=== PATIENT | male | born 1960 | race Caucasian/White ===

== ENCOUNTER 2017-08-27 11:04 | Emergency (ER) | payer MEDICAID ==
[~2017-08-27] VITALS: Ht 180.3 cm; Wt 74.8 kg
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
[2017-08-27 12:09] VITALS: BP 143/91
--- NOTE | 2017-08-27 12:13 | RADIOLOGY REPORT PS360 ---
ELBOW-RT-3 VIEWS COMPARISON: None HISTORY: Right elbow pain after wrestling 2-3 weeks ago TECHNIQUE: AP lateral and oblique views FINDINGS: The supracondylar humerus appears normal. The radial head is intact. The olecranon fossa appears normal. There is very minimal spurring of the tip of the olecranon at the insertion of the triceps tendon. There is no abnormal fat pad sign. IMPRESSION: Right elbow negative for acute pathology
--- OUTSIDE RECORDS SUMMARY | 2017-09-05 06:28 | External Medical Summary Rpt | CCD ---
Author Author , ALEXI Organization ALEXI Address Unknown Phone [email or web address] Care Team Providers Care Folder Hand Name Role Phone TONIE DRISCOLL MD, PSC, Unavailable Unavailable TONIE DRISCOLL MD, PSC [facility] Unavailable Unavailable [facility], [facility] ARIAS, ARIAS Unavailable Unavailable [facility] Unavailable Unavailable HOSPITAL, [facility] KLAUS HOGAN Unavailable Unavailable KLAUS ACUÑA Unavailable Unavailable [facility]UL[facility] FLORES JAM, SANDRA FLORES Unavailable Unavailable [facility] Unavailable Unavailable PHYSICIAN PRA, [facility] PHYSICIAN PRA [facility], Unavailable Unavailable [facility] ETIENNE JAIMIE MONTERROSO Unavailable Unavailable CHANDAN PAT, CHANDAN PAT Unavailable Unavailable MONTY CONNIE, Unavailable Unavailable MONTY CONNIE DEPA RAY, DEPA RAY Unavailable Unavailable NAM [facility], Unavailable Unavailable [facility] Unavailable Unavailable [facility], [facility] Unavailable Unavailable TRANSPORTATION SER, [facility] DANNIELLE SEBASTIAN, DANNIELLE Unavailable Unavailable SE[facility]ST[facility], Unavailable Unavailable [facility] Unavailable Unavailable INC, [facility] PEARSON TRA, PEARSON TRA Unavailable Unavailable [facility] Unavailable Unavailable GROUP PS, [facility] Unavailable Unavailable [facility], [facility] RICAHRD CRI, RICHARD CRI Unavailable Unavailable [facility] Unavailable Unavailable AT [facility] CHANTELLE ANT, CHANTELLE Unavailable Unavailable ANT NWAUCHE [facility], NWAUCHE Unavailable Unavailable [facility] Un[facility] LOC ETIENNE MD Unavailable Unavailable CONSULTING SRV, LOC ETIENNE MD CONSULTING SRV [facility], Unavailable Unavailable PLLC, [facility], [facility] Unavailable Unavailable [facility], [facility] CHINO GRE, Unavailable Unavailable [facility] TY BREEZY, TY BREEZY Unavailable Unavailable BEARDEN SHANDRA, BEARDEN SHANDRA Unavailable Unavailable SOTINGEANU LILIBETH, Unavailable Unavailable SOTINGEANU LILIBETH COUNTS INCLUDE 234 BEDS AT THE [facility] Unavailable Unavailable EMERGENCY PHYS, COUNTS INCLUDE 234 BEDS AT THE [facility] EMERGENCY PHYS BERENICE MAT, BERENICE MAT Unavailable Unavailable Purpose Continuity of Care Document - 12-09-2013 through 2016 Problems Code Diagnosis DOS Provider Status M545 LOW BACK 01-23-2017 [facility] G8929 OTHER 12-26-2016 [facility] M5431 SCIATICA 07-11-2016 [facility] Z720 TOBACCO USE 07-11-2016 [facility] X76408 CELLULITIS 06-01-2016 [facility] OF RIGHT PHYSICIANS, LOWER LIMB PLLC W30027 PAIN IN 06-01-2016 [facility] [id number] STRAIN 06-01-2016 [facility] MUSCLE [facility], FASCIA & PLLC TENDON LOW BACK INITIAL [id number] UNSPECIFIED 06-01-2016 [facility] LOWER BACK IMAGING ASS INITIAL ENCOUNTER [id number] PUNCTURE 06-01-2016 [facility] WOUND W/O [facility] FOREIGN INC BODY RT KNEE INIT ENC G5601 CARPAL 01-23-2016 TONIE BUX, TUNNEL , PSC SYNDROME RIGHT UPPER LIMB M129 ARTHROPATHY 01-23-2016 [facility] UNSPECIFIED INC R69 ILLNESS 01-23-2016 FED[facility]ATED UNSPECIFIED TRANSPORTAT ION SER G5602 CARPAL 11-24-2015 [facility] [place] [facility] SYNDROME S PLC LEFT UPPER LIMB C85871 PAIN IN 09-29-2015 [facility] B14368 PAIN IN 09-29-2015 [facility] 62342 08-05-2015 [facility] TRANSPORTAT ION SER 2113 BENIGN 06-22-2015 [facility], NEOPLASM OF LLC COLON V7651 SPECIAL 06-22-2015 [facility] PRA NEOPLASMS COLON 28366 DYSPHAGIA 06-06-2015 [facility] 0088 INTESTINAL 02-17-2015 [facility] N EMERGENCY DUE TO PHYS OTHER ORGANISM NEC 18921 NAUSEA WITH 02-17-2015 [facility] [place] [facility] 86698 ABDOMINAL 02-17-2015 [facility] PAIN, N EMERGENCY UNSPECIFIED PHYS SITE 3540 CARPAL 06-16-2014 [facility] [place] [address] ESOPHAGEAL 05-12-2014 [facility] 7242 LUMBAGO 05-12-2014 [facility] 8461 SPRAIN AND 04-09-2014 [facility] [place] [address] CHEST PAIN 04-01-2014 [facility] UNSPECIFIED CARDIOLOGY AT [facility] 96819 OTH 04-01-2014 [facility] NONSPECIFIC C[facility] ABNORM CV AT [facility] SYSTEM FUNCTION STUDY V7281 PRE-OPERATI 04-01-2014 [facility] VE CARDIOLOGY CARDIOVASCU AT [facility] LAR EXAMINATION 7856 ENLARGEMENT 03-22-2014 [facility] [place] [address] OTHER 03-22-2014 [facility] [place] NONSPECIFIC RADIOLOGY ABNORMAL FINDING OF LUNG FIELD V7263 PRE-PROCEDU 03-22-2014 [facility] EXAMINATION 7197 DIFFICULTY 02-16-2014 [facility] IN [facility] 59973 SHORTNESS 02-16-2014 [facility] 38319 PRECORDIAL 02-16-2014 LOC ETIENNE [place] 08682 PAIN IN 02-09-2014 [facility] PELVIC REGION AND THIGH 7295 PAIN IN 02-09-2014 [facility] LIMB 3542 LESION OF 01-19-2014 [facility] JUANITA 2724 OTHER AND 01-15-2014 [facility] HARDWICK UNSPECIFIED HYPERLIPIDE ENRRIQUE 4011 ESSENTIAL 01-08-2014 [facility], BENIGN INC 43367 HYPERTROPHY 01-08-2014 [facility] PROSTATE [facility] W/O UR OBST INC & OTH LUTS 11105 PAIN IN 12-22-2013 [facility] JOINT, HAND ORTHOP[facility]EDIC S PLC Medications Na ND Rx Da Fi Fi Am Da Di Ph RX Ph St me C No te ll ll ou ys ag ar # ys at rm s nt no ma ic us Or Da si cy ia de te s n re d LA 68 09 10 60 30 00 HO Ac NS 00 -1 -0 .0 00 ME ti OP 10 1- 6- 00 06 TO ve RA 11 20 20 07 WN ZO 20 17 17 27 LE [address] MA CY 30 OF MG CY CA NT PS HI UL AN E A CY 10 09 10 60 30 00 HO Ac CL 70 -1 -0 .0 00 ME ti OB 20 1- 6- 00 06 TO ve EN 00 20 20 09 WN ZA 71 17 17 40 TX 0 97 PH IN AR E MA 10 CY MG OF TA CY BL NT ET HI AN A LA 68 08 08 60 30 00 HO Ac NS 00 -0 -2 .0 00 ME ti OP 10 1- 5- 00 06 TO ve RA 11 20 20 07 WN ZO 20 17 17 27 LE [address] LENZ CY 30 OF MG CY CA NT PS HI UL AN E A CY 69 08 08 60 30 00 HO Ac CL 09 -0 -2 .0 00 ME ti OB 70 1- 5- 00 06 TO ve EN 84 20 20 09 WN ZA 61 17 17 16 TX 5 89 PH IN AR E MA 10 CY MG OF TA CY BL NT ET HI AN A CY 69 06 06 60 30 00 HO Ac CL 09 -0 -2 .0 00 ME ti OB 70 2- 3- 00 06 TO ve EN 84 20 20 08 WN ZA 61 17 17 33 TX 5 31 PH IN AR E MA 10 CY MG OF TA CY BL NT ET HI AN A NI 00 05 05 28 28 00 HO Ac CO 53 -0 -2 .0 00 ME ti TI 61 2- 6- 00 06 TO ve NE 10 20 20 08 WN 7 68 17 17 05 8 23 PH MG AR /2 MA 4H CY R PA OF TC H CY NT HI AN A NA 68 05 05 60 30 00 HO Ac TX 46 -0 -2 .0 00 ME ti OX 20 1- 6- 00 06 TO ve EN 19 20 20 08 WN 00 17 17 05 50 5 18 PH 0 AR MG MA CY TA BL OF ET CY NT HI AN A CY 69 05 05 60 30 00 HO Ac CL 09 -0 -2 .0 00 ME ti OB 70 1- 6- 00 06 TO ve EN 84 20 20 08 WN ZA 61 17 17 33 TX 5 31 PH IN AR E MA 10 CY MG OF TA CY BL NT ET HI AN A LA 68 05 05 60 30 00 HO Ac NS 00 -0 -2 .0 00 ME ti OP 10 1- 6- 00 06 TO ve RA 11 20 20 07 WN ZO 20 17 17 27 LE [address] LENZ CY 30 OF MG CY CA NT PS HI UL AN E A NI 00 03 05 14 14 00 HO Ac CO 53 -2 -0 .0 00 ME ti TI 65 7- 5- 00 06 TO ve NE 89 20 20 08 WN 58 17 17 05 14 8 21 PH AR MG MA /2 CY 4H R OF PA TC CY H NT HI AN A LA 68 03 04 60 30 00 HO Ac NS 00 -1 -0 .0 00 ME ti OP 10 6- 7- 00 06 TO ve RA 11 20 20 07 WN ZO 20 17 17 27 LE [address] YOANNA CY 30 OF MG CY CA NT PS HI UL AN E A NA 68 03 04 60 30 00 HO Ac TX 46 -1 -0 .0 00 ME ti OX 20 6- 7- 00 06 TO ve EN 19 20 20 08 WN 00 17 17 05 50 5 18 PH 0 AR MG MA CY TA BL OF ET CY NT HI AN A CY 00 03 04 60 30 00 HO Ac CL 60 -1 -0 .0 00 ME ti OB 33 6- 7- 00 06 TO ve EN 07 20 20 08 WN ZA 93 17 17 33 TX 2 31 PH IN AR E MA 10 CY MG OF TA CY BL NT ET HI AN A NA 68 01 02 60 30 00 HO Ac TX 46 -3 -2 .0 00 ME ti OX 20 1- 4- 00 06 TO ve EN 19 20 20 08 WN 00 17 17 05 50 5 18 PH 0 AR MG MA CY TA BL OF ET CY NT HI AN A NI 00 01 02 14 14 00 HO Ac CO 53 -3 -2 .0 00 ME ti TI 65 1- 4- 00 06 TO ve NE 89 20 20 08 WN 68 17 17 05 21 8 20 PH AR MG MA /2 CY 4H R OF PA TC CY H NT HI AN A CY 00 01 02 60 30 00 HO Ac CL 60 -1 -1 .0 00 ME ti OB 33 7- 7- 00 06 TO ve EN 07 20 20 07 WN ZA 93 17 17 63 TX 2 94 PH IN AR E MA 10 CY MG OF TA CY BL NT ET HI AN A LA 68 01 02 60 30 00 HO Ac NS 00 -1 -1 .0 00 ME ti OP 10 7- 7- 06 TO ve RA 11 20 20 07 WN ZO 20 17 17 27 LE [address] LENZ CY 30 OF MG CY CA NT PS HI UL AN E A Procedures Procedure DOS Code Location Performer Comment THERAPEUT 20609 [facility] IC PX 1/> 7 [facility] ARE[facility] INC INC EACH 15 MIN EXERCISES APPL 79274 [facility] MODALITY 7 [facility] 1/> AREAS INC INC TRACTION MECHANICA L APPL 30635 [facility] MODALITY [facility] 1/> AREAS INC INC ELEC STIMJ UNATTENDE D APPLICATI 04243 [facility] ON 7 [facility]OS[facility] MODALITY INC INC 1/> AREAS HOT/COLD PACKS APPLICATI 81444 [facility] ON 7 [facility]OS[facility] MODALITY INC INC 1/> AREAS HOT/COLD PACKS APPL 96119 [facility] MODALITY 7 [facility]OS[facility] 1/> AREAS INC INC ELEC STIMJ UNATTENDE D APPL 21186 [facility] MODALITY 7 [facility] 1/> AREAS INC INC TRACTION MECHANICA L THERAPEUT 49390 [facility] IC PX 1/> 7 [facility] AREAS INC INC EACH 15 MIN EXERCISES THERAPEUT 10313 [facility] IC PX 1/> 7 [facility]OS[facility] AREAS INC INC EACH 15 MIN EXERCISES APPL 44609 [facility] MODALITY 7 [facility]OS[facility] 1/> AREAS INC INC TRACTION MECHANICA L APPL 99995 [facility] MODALITY 7 [facility] 1/> AREAS INC INC ELEC STIMJ UNATTENDE D APPLICATI 99488 [facility] ON 7 [facility]OS[facility] MODALITY INC INC 1/> AREAS HOT/COLD PACKS APPLICATI 77976 [facility] ON 7 [facility]OS[facility] MODALITY INC INC 1/> AREAS HOT/COLD PACKS APPL 96128 [facility] MODALITY 7 [facility]OS[facility] 1/> AREAS INC INC ELEC STIMJ UNATTENDE D APPL 54818 [facility] MODALITY 7 [facility] 1/> AREAS INC INC TRACTION MECHANICA L THERAPEUT 38133 [facility] IC PX 1/> 7 [facility]OS[facility] AREAS INC INC EACH 15 MIN EXERCISES PHYSICAL 77510 [facility] THERAPY 7 [facility]OS[facility] EVALUATIO INC INC N MOD COMPLEX 30 MINS RADEX 02944 [facility] SPINE 7 MEDICAL LUMBOSACR IMAGING AL 2/3 ASS VIEWS RADEX 73019 [facility] SPINE 6 MEDICAL CONNIE LUMBOSACR IMAGING AL ASS MINIMUM 4 VIEWS RADIOLOGI 34520 [facility] M[facility] C 6 MEDICAL CONNIE EXAMINATI IMAGING ON KNEE 3 ASS VIEWS NONEMERG A0120 [facility]ATED FEDERATED TRNSPRT: 6 [facility]SPORT TRANSPORT MTN ATION SER ATION SER AREA/OTH SYS NONEMERG A0120 [facility]ERATED FEDERATED TRNSPRT: 6 [facility] TRANSPORT TRANSPORT MTN ATION SER ATION SER AREA/OTH SYS NONEMERG A0120 FEDERATED FEDERATED TRNSPRT: 5 [facility] TRANSPORT TRANSPORT MTN ATION SER ATION SER AREA/OTH SYS NONEMERG A0120 FEDERATED FEDERATED TRNSPRT: 5 [facility] TRANSPORT TRANSPORT MTN ATION SER ATION SER AREA/OTH SYS NERVE 34945 [facility] CONDUCTIO 5 N N STUDIES NEUROLOGY 9-10 STUDIES NONEMERG A0120 FEDERATED FEDERATED TRNSPRT: 5 [facility] TRANSPORT TRANSPORT MTN ATION SER ATION SER AREA/OTH SYS NEEDLE 20671 [facility] EMG EA 5 N EXTREMTY NEUROLOGY W/PARASPI NL AREA COMPLETE NONEMERG A0120 FEDERATED FEDERATED TRNSPRT: 5 [facility] TRANSPORT TRANSPORT MTN ATION SER ATION SER AREA/OTH SYS NONEMERG A0120 FEDERATED FEDERATED TRNSPRT: 5 [facility] TRANSPORT TRANSPORT MTN ATION SER ATION SER AREA/OTH SYS NONEMERG A0120 FEDERATED FEDERATED TRNSPRT: 5 [facility] TRANSPORT TRANSPORT MTN ATION SER ATION SER AREA/OTH SYS ANES 41008 [facility] BREEZY LOWER 5 ANESTHESI INTESTINE A GROUP [place] [address] [facility], CHANDAN PAT SURG 5 LLC PATHOLOGY GROSS&SEBASTIAN ROSCOPIC EXAM NONEMERG A0120 FEDERATED FEDERATED TRNSPRT: 5 [facility] TRANSPORT TRANSPORT MTN ATION SER ATION SER AREA/OTH SYS [place]SC FLX 61205 [place] [facility] W/RMVL 5 REGIONAL GRE OF TUMOR PHYSICIAN POLYP PRA LESION SNARE TQ SWALLOWIN 67477 RAJANI GERARD G FUNCJ 5 [facility] W/[facility] IOGRAPY/V IDRADIOG NONEMERG A0120 FEDERATED FEDERATED TRNSPRT: 5 [facility]I-[facility] TRANSPORT TRANSPORT [facility] AREA/OTH SYS MOTION 51139 [facility] FLUOR 5 [facility] SWLNG FUNCJ C/V REC NONEMERG A0120 FEDERATED FEDERATED TRNSPRT: 5 [facility] TRANSPORT TRANSPORT MT[facility] [address] [facility] [place] FLORES JAM ABDOMEN & 5 RADIOLOGY PELVIS W/O CONTRAST MATERIAL NONEMERGE A0100 [facility]ER[facility] FEDERATED NCY 5 TRANSPORT TRANSPORT TRAN[facility] TAXI NONEMERG A0120 FEDERATED FEDERATED TRNSPRT: 4 TRANS [facility] TRANSPORT SERVBLUEG MTN [facility] DARWIN AREA/OTH SYS NONEMERG A0120 FEDERATED FEDERATED TRNSPRT: 4 TRANS [facility]I-BUS TRANSPORT SERVBLUEG MTN [facility] DARWIN AREA/OTH SYS NONEMERG A0120 FEDERATED FEDERATED TRNSPRT: 4 TRANS MINI-BUS TRANSPORT SERVBLUEG MTN [facility] DARWIN AREA/OTH SYS NEUROPLAS 19810 [facility] TY 4 [place] &/TRANSPO ORTHOPAED S MEDIAN ICS PLC NRV CARPAL TUNNE ANES 94939 [facility] NERVE 4 ANESTHESI MUSCLE A GROUP TDN PS FASCIA&BU RSA FOREARM WRIST NONEMERG A0120 FEDERATED FEDERATED TRNSPRT: 4 TRANS [facility]I-BUS TRANSPORT SERVBLUEG MTN [facility] SER DARWIN AREA/OTH SYS NONEMERG A0120 FEDERATED FEDERATED TRNSPRT: 4 TRANS MINI-BUS TRANSPORT SERVBLUEG MTN [facility] DARWIN AREA/OTH SYS INJECTION 22455 [facility] 1 TENDON 4 [place] ORTHOPAED SHEATH/LI ICS PLC GAMENT APONEUROS IS NONEMERG A0120 FEDERATED FEDERATED TRNSPRT: 4 TRANS MINI-BUS TRANSPORT SERVBLUEG [facility] AREA/OTH SYS INJ J0702 [facility] BETAMETHA 4 [place] SONE ORTHOPAED ACETATE & ICS PLC PHOSPHATE 3 MG THERAPEUT 26995 [facility]IMARY [facility] IC 4 HEALTH MULU PROPHYLAC ASSOCIATE TIC/DX S PS INJECTION SUBQ/IM INJECTION J2001 [facility] 4 HEALTH MULU LIDOCAINE ASSOCIATE HCL S PS INTRAVENO US INFUS 10 MG INJ J2930 [facility] METHYLPRD 4 HEALTH MULU NISOLONE ASSOCIATE SODIUM S PS SUCCNAT TO 125 MG NONEMERG A0120 FEDERATED FEDERATED TRNSPRT: 4 TRANS MINI-BUS TRANSPORT SERVBLUEG [facility] AREA/OTH SYS NONEMERG A0120 FEDERATED FEDERATED TRNSPRT: 4 TRANS MINI-BUS TRANSPORT SERVBLUEG [facility] AREA/OTH SYS CATH PLMT 90421 [facility] L HRT & 4 ANT ARTS CARDIOLOG W/NJX & Y AT [facility] ANGIO IMG S&I NONEMERG A0120 FEDERATED FEDERATED TRNSPRT: 4 TRANS [facility]I-BUS TRANSPORT SERVBLUEG [facility] AREA/OT SYS ECG 59303 LOC ETIENNE ETIENNE LOC ROUTINE 4 MD ECG CONSULTIN W/LEAST G SRV 12 LDS I&R ONLY RADIOLOGI 90028 [facility] [place] BERENICE MAT C EXAM 4 RADIOLOGY CHEST 2 VIEWS FRONTAL&L ATERAL NONEMERG A0120 FEDERATED FEDERATED TRNSPRT: 4 [facility]I-BUS TRANSPORT TRANSPORT [facility] AREA/OTH SYS BLOOD 98964 [facility] COUNT 4 [facility] AUTOMATED BASIC 59456 [facility] METABOLIC 4 [facility] CALCIUM TOTAL COLLECTIO 64931 [facility] N VENOUS 4 [facility] VENIPUNCT URE ECG 66774 [facility] ROUTINE 4 [facility] W/LEAST 12 LDS TRCG ONLY W/O I&R NONEMERG A0120 FEDERATED FEDERATED TRNSPRT: 4 [facility] TRANSPORT TRANSPORT MTN ATION SER ATION SER AREA/OTH SYS NONEMERG A0120 FEDERATED FEDERATED TRNSPRT: 4 [facility] TRANSPORT TRANSPORT MTN ATION SER ATION SER AREA/OTH SYS MYOCARDIA 88205 LOC ETIENNE ETIENNE LOC L SPECT 4 MD MULTIPLE CONSULTIN STUDIES G SRV INJECTION J2785 [address] ON 0.1 MG TECHNETIU A9500 [facility] TC-99M [address] [place] [address] DX PER STUDY DOSE CV STRS 31979 [facility] TST 4 [facility] XERS&/OR HOSPITAL HOSPITAL RX CONT ECG TRCG ONLY CV STRS 19381 LOC ETIENNE ETIENNE LOC TST 4 MD XERS&/OR CONSULTIN RX CONT G SRV ECG I&R ONLY NONINVASI 78884 [facility] VE 4 [facility] EAR/PULSE [facility] OXIMETRY OVERNIGHT MONITOR INJ J0702 [facility] BETAMETHA 4 [place] SONE ORTHOPAED ACETATE & ICS PLC PHOSPHATE 3 MG ARTHROCEN 39497 [facility] TESIS 4 [place] ASPIR&/IN ORTHOPAED J SMALL ICS PLC JT/BURSA W/O US RADEX HIP 45880 [facility] [place] BERENICE MAT 4 RADIOLOGY UNILATERA L COMPLETE MINIMUM 2 VIEWS NONEMERG A0120 FEDERATED FEDERATED TRNSPRT: 4 [facility] TRANSPORT TRANSPORT MTN ATION SER ATION SER AREA/OTH SYS ECHO 02640 LOC ETIENNE ETIENNE LOC TTHRC R-T 4 2D CONSULTIN W/WOM-MOD G SRV E COMPL SPEC&COLR D NONEMERG A0120 FEDERATED FEDERATED TRNSPRT: 4 [facility] TRANSPORT TRANSPORT MTN ATION SER ATION SER AREA/OTH SYS NERVE 18293 [facility] CONDUCTIO 4 NEUROLOGY OMAR N STUDIES CENTER 9-10 JUANITA STUDIES NEEDLE 04647 [facility] N[facility] EMG EA 4 NEUROLOGY OMAR EXTREMTY CENTER W/PARASPI JUANITA NL AREA COMPLETE ELIG CLIN G8427 [facility] ATTSTS 4 NEUROLOGY OMAR DOC M REC CENTER OBTD JUANITA UPD/REV PT MEDS NONEMERG A0120 FEDERATED FEDERATED TRNSPRT: 4 [facility] TRANSPORT TRANSPORT MTN ATION SER ATION SER AREA/OTH SYS NONEMERG A0120 FEDERATED FEDERATED TRNSPRT: 4 [facility] TRANSPORT TRANSPORT MTN ATION SER ATION SER AREA/OTH SYS LIPID 06517 [facility] PANEL 4 [facility] INC INC HEPATIC 36987 [facility] FUNCTION 4 [facility] PANEL INC INC BASIC 30660 [facility] OSL METABOLIC 4 [facility] PANEL INC INC CALCIUM TOTAL PROSTATE G0103 [facility] CANCER 4 [facility] SCREENING INC INC ; PSA TEST NONEMERG A0120 FEDERATED FEDERATED TRNSPRT: 4 [facility] TRANSPORT TRANSPORT MTN ATION SER ATION SER AREA/OTH SYS NONEMERG A0120 FEDERATED FEDERATED TRNSPRT: 4 [facility] TRANSPORT TRANSPORT MTN ATION SER ATION SER AREA/OTH SYS NONEMERG A0120 FEDERATED FEDERATED TRNSPRT: 4 [facility] TRANSPORT TRANSPORT MTN ATION SER ATION SER AREA/OTH SYS RADEX 07567 [facility] HAND 4 [place] MINIMUM 3 ORTHOPAED VIEWS ICS PLC NONEMERG A0120 FEDERATED FEDERATED TRNSPRT: 4 [facility] TRANSPORT TRANSPORT MTN ATION SER ATION SER AREA/OTH SYS NONEMERG A0120 FEDERATED FEDERATED TRNSPRT: 4 [facility] TRANSPORT TRANSPORT MTN ATION SER ATION SER AREA/OTH SYS Encounters Encounter Start End Date Code Location Performer Type Date [facility] - 7 7 [facility] - 7 7 [facility] - 6 6 [facility] INC EMERGENCY 42811 JONO LAMAS 6 6 PHYSICIAN U [facility] T VISIT MODERATE SEVERITY EMERGENCY 23938 [facility] 6 6 [facility] T VISIT LOW/MODER SEVERITY HOSPITAL [facility] - 6 6 [facility] OUTPATIEN [facility] T EMERGENCY 31007 JONO SPICER 6 6 PHYSICIAN [facility] T VISIT MODERATE SEVERITY EMERGENCY 35547 [facility] 6 6 [facility] T VISIT LOW/MODER SEVERITY OFFICE 93810 [facility] T VISIT INC 10 MINUTES OFFICE 57157 TONIE RAMOS [facility] OUTPATIEN 6 6 MD YAMILA, T NEW 45 PSC MINUTES HOSPITAL [facility] - 6 6 [facility] OUTPATIEN INC T OFFICE 13356 [facility] OUTPATIEN 5 5 [place] T VISIT ORTHOPAED 15 ICS PLC MINUTES OFFICE 66589 [facility] OUTPATIEN 5 5 [place] [facility] ORTHOPAED 15 I[facility] PLC MINUTES OFFICE 64859 [facility] OUTPATIEN 5 5 [place] VIS[place]THOPAED 15 [facility] MINUTES [facility] [place] [facility] 5 5 [facility] 99954 [facility] 5 5 [facility] EMERGENCY T VISIT PHYS HIGH/URGE NT SEVERITY OFFICE 02431 [facility] OUTPATIEN 4 4 [facility]ALTH [facility] T VISIT ASSOCIATE 15 S PS MINUTES OFFICE 20946 [facility] OUTPATIEN 4 4 [place] T VISIT ORTHOPAED 15 ICS PLC MINUTES OFFICE 47400 [facility] OUTPATIEN 4 4 [facility]ALTH [facility] T VISIT ASSOCIATE 25 S PS MINUTES [facility] [place] - 4 4 [facility] T OFFICE 41347 [facility] OUTPATIEN 4 4 HEALTH [facility]UL[facility] T VISIT ASSOCIATE 15 S PS MINUTES OFFICE 47160 [facility] OUTPATIEN 4 4 [place] T VISIT ORTHOPAED 15 ICS PLC MINUTES OFFICE 34568 [facility] OUTPATIEN 4 4 [place] VISIT ORTHOPAED 15 [facility] MINUTES [facility] [place] [facility] 4 4 [facility] T OFFICE 62305 [facility] KLAUS OUTPATIEN 4 4 MULU MULU T VISIT 25 MINUTES OFFICE 24537 [facility] KLAUS OUTPATIEN 4 4 MULU MULU T VISIT 15 MINUTES HOSPITAL [facility] - 4 4 [facility] T OFFICE 71893 [facility] OUTPATIEN 4 4 [place] T NEW 30 ORTHOPAED MINUTES ICS PLC OFFICE 25390 PR[facility] OUTPATIEN 4 4 HEALTH MULU T NEW 30 ASSOCIATE MINUTES S PS
--- OUTSIDE RECORDS SUMMARY | 2017-09-05 06:28 | External Medical Summary Rpt | CCD ---
Author Author , ALEXI Organization ALEXI Address Unknown Phone [email or web address] Care Team Providers Care Portable Irrigation Operator Name Role Phone TONIE DRISCOLL MD, PSC, Unavailable Unavailable TONIE DRISCOLL MD, PSC [facility] Unavailable Unavailable [facility]ENTER J[facility], [facility] J[facility]ITA ARIAS, ARIAS Unavailable Unavailable [facility] Unavailable Unavailable HOSPITAL, [facility] KLAUS HOGAN Unavailable Unavailable KLAUS ACUÑA Unavailable Unavailable MUL[facility] FLORES JAM, SANDRA FLORES Unavailable Unavailable [facility] Unavailable [facility] Unavailable Unavailable PHYSICIAN PRA, [facility] PH[facility]ICIAN PRA [facility], Unavailable Unavailable [facility] ETIENNE JAIMIE MONTERROSO Unavailable Unavailable CHANDAN PAT, CHANDAN PAT Unavailable Unavailable MONTY CONNIE, Unavailable Unavailable MONTY CONNIE DEPA RAY, DEPA RAY Unavailable Unavailable NAM OMAR, Unavailable Unavailable N[facility] Unavailable Unavailable [facility], [facility] Unavailable Unavailable TRANSPORTATION SER, [facility] DANNIELLE SEBASTIAN, DANNIELLE Unavailable Unavailable [facility], Unavailable Unavailable [facility] Unavailable Unavailable INC, [facility] PEARSON TRA, PEARSON TRA Unavailable Unavailable [facility] Unavailable Unavailable GROUP PS, [facility] Unavailable Unavailable [facility], [facility] RICHARD CRI, RICHARD CRI Unavailable Unavailable [facility] Unavailable Unavailable AT [facility], [facility] CHANTELLE ANT, CHANTELLE Unavailable Unavailable ANT [facility], NWAUCHE Unavailable Unavailable [facility] Unavailable [facility] LOC ETIENNE MD Unavailable Unavailable CONSULTING SRV, LOC ETIENNE MD CONSULTING SRV [facility], Unavailable Unavailable PLLC, [facility], [facility] Unavailable Unavailable [facility], [facility] CHINO GRE, Unavailable Unavailable [facility] TY BREEZY, TY BREEZY Unavailable Unavailable BEARDEN SHANDRA, BEARDEN SHANDRA Unavailable Unavailable SOTINGEANU LILIBETH, Unavailable Unavailable SOTINGEANU LILIBETH [facility] Unavailable Unavailable EMERGENCY PHYS, [facility] BERENICE MAT, BERENICE MAT Unavailable Unavailable Purpose Continuity of Care Document - 12-09-2013 through 2016 Problems Code Diagnosis DOS Provider Status M545 LOW BACK 01-23-2017 [facility] G8929 OTHER 12-26-2016 [facility] M5431 SCIATICA 07-11-2016 [facility] Z720 TOBACCO USE 07-11-2016 [facility] T04696 CELLULITIS 06-01-2016 [facility] RIGHT PHYSICIANS, LOWER LIMB PLLC A55441 PAIN IN 06-01-2016 [facility] [id number] STRAIN 06-01-2016 [facility], FASCIA & PLLC TENDON LOW BACK INITIAL [id number] UNSPECIFIED 06-01-2016 [facility]OWER BACK [facility] ASS INITIAL ENCOUNTER [id number] PUNCTURE 06-01-2016 [facility] WOUND W/O [facility] FOREIGN INC BODY RT KNEE INIT ENC G5601 CARPAL 01-23-2016 TONIE BUX, TUNNEL , PSC SYNDROME RIGHT UPPER LIMB M129 ARTHROPATHY 01-23-2016 [facility] UNSPECIFIED INC R69 ILLNESS 01-23-2016 FED[facility]ATED UNSPECIFIED TRANSPORTAT ION SER G5602 CARPAL 11-24-2015 [facility] [place] [facility] SYNDROME S PLC LEFT UPPER LIMB V71276 PAIN IN 09-29-2015 [facility] C26937 PAIN IN 09-29-2015 [facility] 02205 08-05-2015 [facility] TRANSPORTAT ION SER 2113 BENIGN 06-22-2015 [facility], NEOPLASM OF LLC COLON V7651 SPECIAL 06-22-2015 [facility] PRA NEOPLASMS COLON 21115 DYSPHAGIA 06-06-2015 [facility] 0088 INTESTINAL 02-17-2015 [facility] EMERGENCY DUE TO PHYS OTHER ORGANISM NEC 69242 NAUSEA WITH 02-17-2015 [facility] [place] [facility] 43659 ABDOMINAL 02-17-2015 [facility] PA[facility], N EMERGENCY UNSPECIFIED PHYS SITE 3540 CARPAL 06-16-2014 [place] [address] ESOPHAGEAL 05-12-2014 [facility] 7242 LUMBAGO 05-12-2014 [facility] 8461 SPRAIN AND 04-09-2014 [facility] [place] [address] CHEST PAIN 04-01-2014 [facility] UNSPECIFIED CARDIOLOGY AT [facility] 33052 OTH 04-01-2014 [facility] NONSPECIFIC CARDIOLOG[facility] ABNORM CV AT [facility] SYSTEM FUNCTION STUDY V7281 PRE-OPERATI 04-01-2014 [facility] VE CARDIOLOGY CARDIOVASCU AT [facility] LAR EXAMINATION 7856 ENLARGEMENT 03-22-2014 [facility] [place] [address] OTHER 03-22-2014 [facility] [place] NONSPECIFIC RADIOLOGY ABNORMAL FINDING OF LUNG FIELD V7263 PRE-PROCEDU 03-22-2014 [facility] EXAMIN[facility] 7197 DIFFICULTY 02-16-2014 [facility] 24779 SHORTNESS 02-16-2014 [facility] 53278 PRECORDIAL 02-16-2014 LOC E[place]ENNE [place] 37416 PAIN IN 02-09-2014 [facility] JOINT RADIOLOGY PELVIC REGION AND THIGH 7295 PAIN IN 02-09-2014 [facility] LIMB 3542 LESION OF 01-19-2014 [facility] JUANITA 2724 OTHER AND 01-15-2014 [facility] HARDWICK UNSPECIFIED HYPERLIPIDE ENRRIQUE 4011 ESSENTIAL 01-08-2014 [facility]ERT[facility], BENIGN INC 88232 HYPERTROPHY 01-08-2014 [facility] PROSTATE [facility] W/O UR OBST INC & OTH LUTS 52033 PAIN IN 12-22-2013 [facility] JOINT, HAND ORTHOPAEDIC S PLC Medications [...] 09 WN ZA 71 17 17 40 NE 0 97 PH IN AR E MA [...] 09 WN ZA 61 17 17 16 NE 5 89 PH IN AR E MA 10 CY MG OF TA CY BL NT ET HI AN A CY 69 06 06 60 30 00 HO Ac CL 09 -0 -2 .0 00 ME ti OB 70 2- 3- 00 06 TO ve EN 84 20 20 08 WN ZA 61 17 17 33 NE 5 31 PH IN AR E MA [...] 05 05 60 30 00 HO Ac NE 46 -0 -2 .0 00 ME ti [...] 08 WN ZA 61 17 17 33 NE 5 31 PH IN AR E MA [...] 03 04 60 30 00 HO Ac NE 46 -1 -0 .0 00 ME ti [...] 08 WN ZA 93 17 17 33 NE 2 31 PH IN AR E MA 10 CY MG OF TA CY BL NT ET HI AN A NA 68 01 02 60 30 00 HO Ac NE 46 -3 -2 .0 00 ME ti [...] 07 WN ZA 93 17 17 63 NE 2 94 PH IN AR E MA [...] Procedure DOS Code Location Performer Comment THERAPEUT 04671 [facility] SOL IC PX 1/> 7 [facility] AREAS INC INC EACH 15 MIN EXERCISES APPL 13760 [facility] MODALITY 7 [facility] 1/> AREAS INC INC TRACTION MECHANICA L APPL 07317 [facility] MODALITY 7 [facility] 1/> AREAS INC INC ELEC STIMJ UNATTENDE D APPLICATI 18158 [facility] ON 7 [facility]OS[facility]OSP MODALITY INC INC 1/> AREAS HOT/COLD PACKS APPLICATI 75457 [facility] ON 7 [facility] MEM [facility]OSP MODALITY INC INC 1/> AREAS HOT/COLD PACKS APPL 22652 [facility] MODALITY 7 [facility]OS[facility] 1/> AREAS INC INC ELEC STIMJ UNATTENDE D APPL 64798 [facility] MODALITY 7 [facility] 1/> AREAS INC INC TRACTION MECHANICA L THERAPEUT 18184 [facility] IC PX 1/> 7 [facility] AREAS INC INC EACH 15 MIN EXERCISES THERAPEUT 88200 [facility] IC PX 1/> 7 [facility]OS[facility] AREAS INC INC EACH 15 MIN EXERCISES APPL 89505 [facility] MODALITY 7 MEM [facility]OSP 1/> AREAS INC INC TRACTION MECHANICA L APPL 79363 [facility] MODALITY 7 [facility]OS[facility] 1/> AREAS INC INC ELEC STIMJ UNATTENDE D APPLICATI 79769 [facility] ON 7 [facility]OSP MODALITY INC INC 1/> AREAS HOT/COLD PACKS APPLICATI 84258 [facility] ON 7 [facility]OS[facility] MODALITY INC INC 1/> AREAS HOT/COLD PACKS APPL 96001 [facility] MODALITY 7 [facility] 1/> AREAS INC INC ELEC STIMJ UNATTENDE D APPL 95514 [facility] MODALITY 7 [facility]OS[facility] 1/> AREAS INC INC TRACTION MECHANICA L THERAPEUT 46160 [facility] IC PX 1/> 7 [facility] AREAS INC INC EACH 15 MIN EXERCISES PHYSICAL 82970 [facility] THERAPY 7 [facility]OS[facility] EVALUATIO INC INC N MOD COMPLEX 30 MINS RADEX 10498 [place] [facility] SPINE 7 MEDICAL LUMBOSACR IMAGING AL 2/3 ASS VIEWS RADEX 63453 [facility] SPINE 6 MEDICAL CONNIE LUMBOSACR IMAGING AL ASS MINIMUM 4 VIEWS RADIOLOGI 95991 [facility] C 6 MEDICAL CONNIE EXAMINATI IMAGING [...] ATION SER ATION SER AREA/OTH SYS NERVE 04612 [facility] CONDUCTIO 5 N N STUDIES NEUROLOGY 9-10 STUDIES NONEMERG A0120 FEDERATED FEDERATED TRNSPRT: 5 [facility] TRANSPORT MTN ATION SER ATION SER AREA/OTH SYS NEEDLE 69504 [facility] EMG EA 5 N EXTREMTY NEUROLOGY W/PARASPI NL AREA COMPLETE NONEMERG A0120 FEDERATED FEDERATED TRNSPRT: 5 [facility] TRANSPORT TRANSPORT MTN ATION SER ATION SER AREA/OTH SYS NONEMERG A0120 FEDERATED FEDERATED TRNSPRT: 5 [facility] TRANSPORT TRANSPORT MTN ATION SER ATION SER AREA/OTH SYS NONEMERG A0120 FEDERATED FEDERATED TRNSPRT: 5 [facility] TRANSPORT TRANSPORT MTN ATION SER ATION SER AREA/OTH SYS ANES 33079 [facility] BREEZY LOWER 5 ANESTHESI INTESTINE A GROUP [place] [address] [facility], CHANDAN PAT SURG 5 LLC PATHOLOGY GROSS&SEBASTIAN ROSCOPIC EXAM NONEMERG A0120 FEDERATED FEDERATED TRNSPRT: 5 [facility]SPORT TRANSPORT MTN ATION SER ATION SER AREA/OTH SYS COLSC FLX 63962 [place] [facility]INO W/RMVL 5 [facility] GRE OF TUMOR PHYSICIAN POLYP PRA LESION SNARE TQ SWALLOWIN 51587 RAJANI GERARD G FUNCJ 5 [facility] W/[facility] IOGRAPY/V IDRADIOG NONEMERG A0120 FEDERATED FEDERATED TRNSPRT: 5 [facility] TRANSPORT TRANSPORT MTN ATPENDING SALE TO [facility] SER AREA/OTH SYS MOTION 66025 [facility] FLUOR 5 [facility] SWLNG FUNCJ C/V REC NONEMERG A0120 FEDERATED FEDERATED TRNSPRT: 5 [facility] TRANSPORT TRANSPORT MTN ATPENDING SALE TO [facility] SER AREA/[place] [address] [facility] [place] FLORES JAM ABDOMEN & 5 RADIOLOGY PELVIS W/O CONTRAST MATERIAL NONEMERGE A0100 FEDERATED FEDERATED NCY 5 TRANSPORT TRANSPORT TRANSPORT ATPENDING SALE TO [facility]; [facility] SER [facility] SER TAXI NONEMERG A0120 FEDERATED FEDERATED TRNSPRT: 4 TRANS [facility] TRANSPORT SERVBLUEG MTN [facility] SER DARWIN AREA/OTH SYS NONEMERG A0120 FEDERATED FEDERATED TRNSPRT: 4 TRANS [facility] TRANSPORT SERVBLUEG MTN ATPENDING SALE TO [facility] SER DARWIN AREA/OTH SYS NONEMERG A0120 FEDERATED FEDERATED TRNSPRT: 4 TRANS [facility] TRANSPORT SERVBLUEG MTN [facility] SER DARWIN AREA/OTH SYS NEUROPLAS 83116 [facility] TY 4 [place] &/TRANSPO ORTHOPAED S MEDIAN ICS PLC NRV CARPAL TUNNE ANES 50594 [place] DEPA RAY NERVE 4 ANESTHESI MUSCLE A GROUP TDN PS FASCIA&BU RSA FOREARM WRIST NONEMERG A0120 FEDERATED FEDERATED TRNSPRT: 4 TRANS [facility] TRANSPORT SERVBLUEG MTN [facility] SER DARWIN AREA/OTH SYS NONEMERG A0120 FEDERATED FEDERATED TRNSPRT: 4 TRANS [facility] TRANSPORT SERVBLUEG MTN ATPENDING SALE TO [facility] SER DARWIN AREA/OTH SYS INJECTION 38977 [facility] 1 T[place] 4 [place] ORTHOPAED SHEATH/LI ICS PLC GAMENT APONEUROS IS NONEMERG A0120 FEDERATED FEDERATED TRNSPRT: 4 TRANS [facility] TRANSPORT SERVBLUEG [facility] AREA/OTH SYS INJ J0702 [facility] BETAMETHA 4 [place] SONE ORTHOPAED ACETATE & ICS PLC PHOSPHATE 3 MG THERAPEUT 15434 [facility] IC 4 HEALTH MULU PROPHYLAC ASSOCIATE TIC/DX S PS INJECTION SUBQ/IM INJECTION J2001 [facility] 4 HEALTH MULU LIDOCAINE ASSOCIATE HCL S PS INTRAVENO US INFUS 10 MG INJ J2930 [facility] METHYLPRD 4 HEALTH MULU NISOLONE ASSOCIATE SODIUM S PS SUCCNAT TO 125 MG NONEMERG A0120 FEDERATED FEDERATED TRNSPRT: 4 TRANS [facility]SPORT SERVBLUEG [facility] AREA/OTH SYS NONEMERG A0120 FEDERATED FEDERATED TRNSPRT: 4 TRANS [facility] TRANSPORT SERVBLUEG [facility] AREA/OTH SYS CATH PLMT 93067 [facility] L HRT & 4 ANT ARTS CARDIOLOG W/NJX & Y AT [facility] ANGIO IMG S&I NONEMERG A0120 FEDERATED FEDERATED TRNSPRT: 4 TRANS [facility] TRANSPORT SERVBLUEG [facility] AREA/OT SYS ECG 30844 LOC ETIENNE ETIENNE LOC ROUTINE 4 MD ECG CONSULTIN W/LEAST G SRV 12 LDS I&R ONLY RADIOLOGI 01486 [facility] [place] BERENICE MAT C EXAM 4 RADIOLOGY CHEST 2 VIEWS FRONTAL&L ATERAL NONEMERG A0120 FEDERATED FEDERATED TRNSPRT: 4 [facility] TRANSPORT TRANSPORT [facility] AREA/OTH SYS BLOOD 56688 [facility] COUNT 4 [facility] AUTOMATED BASIC 96126 [facility] METABOLIC 4 [facility] CALCIUM TOTAL COLLECTIO 15706 [facility] N VENOUS 4 [facility] VENIPUNCT URE ECG 27378 [facility] ROUTINE 4 [facility] W/LEAST 12 LDS TRCG ONLY W/O I&R NONEMERG A0120 FEDERATED FEDERATED TRNSPRT: 4 [facility] TRANSPORT TRANSPORT MTN ATION SER ATION SER AREA/OTH SYS NONEMERG A0120 FEDERATED FEDERATED TRNSPRT: 4 [facility] TRANSPORT TRANSPORT MTN ATION SER ATION SER AREA/OTH SYS MYOCARDIA 02482 LOC ETIENNE ETIENNE LOC L SPECT 4 MD MULTIPLE CONSULTIN STUDIES G SRV INJECTION J2785 [address] ON 0.1 MG TECHNETIU A9500 [facility] TC-99M [address] [place] [address] DX PER STUDY DOSE CV STRS 59819 [facility] TST 4 [facility] XERS&/OR HOSPITAL HOSPITAL RX CONT ECG TRCG ONLY CV STRS 99571 LOC ETIENNE ETIENNE LOC TST 4 MD XERS&/OR CONSULTIN RX CONT G SRV ECG I&R ONLY NONINVASI 21293 [facility] VE 4 [facility] EAR/PULSE [facility] H[facility]PITAL OXIMETRY OVERNIGHT MONITOR INJ J0702 [facility] BETAMETHA 4 [place] SONE ORTHOPAED ACETATE & ICS PLC PHOSPHATE 3 MG ARTHROCEN 43918 [facility] TESIS 4 [place] ASPIR&/IN ORTHOPAED J SMALL ICS PLC JT/BURSA W/O US RADEX HIP 48999 [facility] [place] BERENICE MAT 4 RADIOLOGY UNILATERA L COMPLETE MINIMUM 2 VIEWS NONEMERG A0120 FEDERATED FEDERATED TRNSPRT: 4 [facility]SPORT TRANSPORT MTN ATION SER ATION SER AREA/OTH SYS ECHO 80902 LOC ETIENNE ETIENNE LOC TTHRC R-T 4 2D CONSULTIN W/WOM-MOD G SRV E COMPL SPEC&COLR D NONEMERG A0120 FEDERATED FEDERATED TRNSPRT: 4 [facility]SPORT TRANSPORT MTN ATION SER ATION SER AREA/OTH SYS NERVE 92575 [facility] CONDUCTIO 4 NEUROLOGY OMAR N STUDIES CENTER 9-10 JUANITA STUDIES NEEDLE 95069 [facility] N[facility] EMG EA 4 NEUROLOGY [facility] EXTREMTY CENTER W/PARASPI JUANITA NL AREA COMPLETE ELIG CLIN G8427 [facility] ATTSTS 4 NEUROLOGY OMAR DOC M REC CENTER OBTD JUANITA UPD/REV PT MEDS NONEMERG A0120 FEDERATED FEDERATED TRNSPRT: 4 [facility]SPORT TRANSPORT MTN ATION SER ATION SER AREA/OTH SYS NONEMERG A0120 FEDERATED FEDERATED TRNSPRT: 4 [facility] TRANSPORT TRANSPORT MTN ATION SER ATION SER AREA/OTH SYS LIPID 13279 [facility] PANEL 4 [facility] INC INC HEPATIC 17370 [facility] FUNCTION 4 [facility] PANEL INC INC BASIC 35321 [facility] METABOLIC 4 [facility] PANEL [...] ATION SER ATION SER AREA/OTH SYS RADEX 03463 [facility] HAND 4 [place] MINIMUM 3 ORTHOPAED VIEWS ICS PLC NONEMERG A0120 FEDERATED FEDERATED TRNSPRT: 4 [facility]SPORT TRANSPORT MTN ATION SER ATION SER AREA/OTH SYS NONEMERG A0120 FEDERATED FEDERATED TRNSPRT: 4 [facility]SPORT TRANSPORT MTN ATION SER ATION SER AREA/OTH SYS Encounters Encounter Start End Date Code Location Performer Type Date [facility] - 7 7 [facility] - 7 7 [facility] - 6 6 [facility] INC EMERGENCY 81061 JONO LAMAS 6 6 PHYSICIAN [facility] T VISIT MODERATE SEVERITY EMERGENCY 90911 [facility] 6 6 [facility] T VISIT LOW/MODER SEVERITY HOSPITAL [facility] - 6 6 [facility] OUTPATIEN [facility] T EMERGENCY 93312 JONO SPICER 6 6 PHYSICIAN [facility] T VISIT MODERATE SEVERITY EMERGENCY 00539 [facility] 6 6 [facility] T VISIT LOW/MODER SEVERITY OFFICE 20566 [facility] T VISIT INC 10 MINUTES OFFICE 14519 TONIE RAMOS [facility] OUTPATIEN 6 6 MD YAMILA, T NEW 45 PSC MINUTES HOSPITAL [facility] - 6 6 [facility] OUTPATIEN INC T OFFICE 35799 [facility] OUTPATIEN 5 5 [place] T VISIT ORTHOPAED 15 ICS PLC MINUTES OFFICE 92681 [facility] OUTPATIEN 5 5 [place] VIS[place] ORTHOPAED 15 [facility] PLC MINUTES OFFICE 27606 [facility] OUTPATIEN 5 5 [place] V[place]THOPAED 15 [facility] MINUTES [facility] [place] [facility] 5 5 [facility] T EMERGENCY 32502 [facility] 5 5 [facility]SY [facility] EMERGENCY T VISIT PHYS HIGH/URGE NT SEVERITY OFFICE 41520 [facility] OUTPATIEN 4 4 HEALTH [facility] T VISIT ASSOCIATE 15 S PS MINUTES OFFICE 60433 [facility] OUTPATIEN 4 4 [place] T VISIT ORTHOPAED 15 ICS PLC MINUTES OFFICE 18020 [facility] OUTPATIEN 4 4 HEALTH [facility] T VISIT ASSOCIATE 25 S PS MINUTES [facility] [place] - 4 4 [facility] T OFFICE 77389 [facility] OUTPATIEN 4 4 HEALTH [facility]ULU T VISIT ASSOCIATE 15 S PS MINUTES OFFICE 43608 [facility] OUTPATIEN 4 4 [place] T VISIT ORTHOPAED 15 ICS PLC MINUTES OFFICE 54892 [facility] OUTPATIEN 4 4 [place] T VISIT ORTHOPAED 15 [facility] MINUTES [facility] [place] - 4 4 [facility] T OFFICE 76298 [facility] OUTPATIEN 4 4 MULU MULU T VISIT 25 MINUTES OFFICE 43708 [facility] K[facility]US OUTPATIEN 4 4 MULU MULU T VISIT 15 MINUTES HOSPITAL [facility] - [address] [facility] T OFFICE 97519 [facility] TRA OUTPATIEN 4 4 [place] T NEW 30 ORTHOPAED MINUTES ICS PLC OFFICE 19750 [facility] OUTPATIEN 4 4 HEALTH MULU T NEW 30 ASSOCIATE MINUTES S PS
--- OUTSIDE RECORDS SUMMARY | 2017-09-05 06:29 | External Medical Summary Rpt | CCD ---
Author Author Conduent Organization Conduent Address Unknown Phone Unavailable Purpose Continuity of Care Document - through 2016
--- OUTSIDE RECORDS SUMMARY | 2017-09-05 06:29 | External Medical Summary Rpt | CCD ---
Demographics Preferred Language Emirati Marital Status Unknown Adventism Affiliation Unknown Race Unknown Ethnic Group Unknown Author Author , ALEXI TURONG Address Unknown Phone Immunization No patient found.
--- OUTSIDE RECORDS SUMMARY | 2017-09-05 06:29 | External Medical Summary Rpt ---
Author Author ALEXI Howell, ALEXI Howell Organization [employer] Address Unknown Phone Unavailable
--- OUTSIDE RECORDS SUMMARY | 2017-09-05 06:29 | External Medical Summary Rpt | CCD ---
Demographics Preferred Language Andorran Marital Status Unknown Holiness Affiliation Unknown Race Unknown Ethnic Group Unknown Author Author , ALEXI TRUONG Address Unknown Phone Immunization No patient found.
== END 2017-08-27 12:10 | disposition home or self-care (01) ==
LOC: UTC 11:04
DX: M77.11 Lateral epicondylitis, right elbow (principal); F17.210 Nicotine dependence, cigarettes, uncomplicated; Z88.6 Allergy status to analgesic agent